=== PATIENT | male | born 1960 | race Caucasian/White ===

== ENCOUNTER → 2018-05-10 | Outpatient (REF) | payer BC, OTHER | LOC: M SMT 17:05 | DX: R97.20 Elevated prostate specific antigen [PSA] (principal) | CPT/HCPCS: 87086 ==

== ENCOUNTER → 2018-06-11 | Outpatient (CLI) | payer OTHER | LOC: M SMT PRO 10:38 | DX: C61 Malignant neoplasm of prostate (principal) | CPT/HCPCS: 88342 ==

== ENCOUNTER 2018-08-13 09:54 | Inpatient (IN) | payer OTHER ==
[~2018-08-13] VITALS: Ht 175.3 cm; Wt 77.1 kg
[~2018-08-13 09:54] MED LIST: COLLCAP2 PO; FISH1000 PO; HEPARIN SOD (PORCINE) 5000 UNITS/ML VIAL SQ ONE; LIDOCAINE 1% MDV 20ML VIAL SQ PRN; LR 1,000 ML IV ONE; MULTCAP PO; TURM500T PO
[2018-08-13] MEDS ORDERED: LIDOCAINE 1% SDV INJ 30 ML VIAL As Ordered ONE (13:29)
[2018-08-13] MEDS ORDERED: BUPIVACAINE HCL 0.25% 30 ML VIAL As Ordered ONE (13:29)
[2018-08-13] MEDS ORDERED: MORPHINE 4 MG/ML 1ML VIAL/SYRINGE (J2270) IV PRN (14:00)
[2018-08-13] MEDS ORDERED: ONDANSETRON 4MG/2ML VIAL (J2405) IV PRN ×2 (14:00→19:45)
[2018-08-13] MEDS ORDERED: ACETAMINOPHEN TAB 650MG DOSE (2X325MG) PO PRN (14:00)
[2018-08-13] MEDS ORDERED: HEPARIN SOD (PORCINE) 5000 UNITS/ML VIAL As Ordered ONE (14:06)
[2018-08-13] MEDS ORDERED: PROPOFOL 200 MG/20 ML VIAL As Ordered ONE (14:06)
[2018-08-13] MEDS ORDERED: MIDAZOLAM INJ 2 MG/2 ML VIAL (J2250) As Ordered ONE (14:06)
[2018-08-13] MEDS ORDERED: dexameTHASONE 4 MG/ML 1ML VIAL (J1100) As Ordered ONE (14:06)
[2018-08-13] MEDS ORDERED: ROCURONIUM BROMIDE 50 MG/5 ML VIAL As Ordered ONE ×4 (14:06→16:45)
[2018-08-13] MEDS ORDERED: LIDOCAINE 2% INJ 100 MG/5 ML SDV (FOR ANES.) As Ordered ONE (14:06)
[2018-08-13] MEDS ORDERED: fentaNYL 250 MCG/5 ML INJECTION (J3010) As Ordered ONE (14:06)
[2018-08-13] MEDS ORDERED: LABETALOL HCL 100 MG/20 ML VIAL As Ordered ONE (14:48)
[2018-08-13] MEDS ORDERED: HYDROmorphone HCL 2 MG/ML 1ML VIAL (J1170) As Ordered ONE (15:32)
[2018-08-13] MEDS ORDERED: METHYLENE BLUE 0.5% (5MG/ML) 10 ML AMP (PROVAYBLUE)(Q9968 PER 1MG) As Ordered ONE (17:48)
[2018-08-13] MEDS ORDERED: FUROSEMIDE 100 MG/10 ML VIAL (J1940) As Ordered ONE (17:49)
[2018-08-13] MEDS ORDERED: ONDANSETRON 4MG/2ML VIAL (J2405) As Ordered ONE (18:30)
[2018-08-13] MEDS ORDERED: SUGAMMADEX SODIUM 500 MG/5 ML VIAL (BRIDION) As Ordered ONE (18:33)
[2018-08-13 19:34] LABS: HEMATOCRIT 45.5 % (42.0-52.0); HEMOGLOBIN 14.7 g/dl (13.5-17.5); MEAN CORPUSCULAR HEMOGLOBIN 30.1 pg (27.0-33.0); MEAN CORPUSCULAR HGB CONC 32.3 g/dl (32.0-36.5); PLATELET COUNT, AUTOMATED 253 10^3/uL (150-450); RED BLOOD COUNT 4.89 10^6/uL (4.30-6.10); WHITE BLOOD COUNT 20.4 10^3/uL (4.0-10.0)
[2018-08-13] MEDS ORDERED: MEPERIDINE INJ 25 MG/ML VIAL (J2175) As Ordered ONE (19:34)
--- NOTE | 2018-08-13 19:34 | ROOPDOC ---
[facility] Report Of Operation Report of Operation DATE OF PROCEDURE: 08/13/18 PREPROCEDURE DIAGNOSIS: Prostate cancer. POSTPROCEDURE DIAGNOSIS: Prostate cancer. PROCEDURE: Robotic-assisted laparoscopic radical prostatectomy with bilateral pelvic lymph node dissection. SURGEON: Goldie Figueroa MD HEALTHCARE TECHNICIAN: Cathie Crook NP ANESTHESIA: General. OPERATIVE INDICATIONS: This is a 58 year old male with intermediate risk clinical T1c [place] 3+4 prostate cancer. After a discussion of the options for treatment, he elected to undergo the above procedure. DESCRIPTION OF PROCEDURE: The patient was brought to the operating room and general anesthesia was induced. Prophylactic antibiotics were infused. He was then placed in the dorsal lithotomy position and prepped and draped in the usual sterile fashion. At this point, a Her catheter was inserted into the bladder and the balloon was filled with 10 mL of sterile water. We then made a midline incision just above the umbilicus for a 12 mm port. A Veress needle was utilized to achieve pneumoperitoneum. Next, a 12 mm port was inserted into the incision and subsequently a camera was inserted. There were no injuries from the Veress needle or initial trocar placement. At this point, we placed the remaining ports, including a 12 mm speech language pathology assistant port and then three robotic ports in the usual W configuration. Once all the ports were placed, the robot was docked. Lysis of adhesions between the sigmoid colon and abdominal wall was then performed. The bladder was then released from the anterior abdominal wall using electrocautery. Once the bladder was dropped, the fat overlying the prostate was cleared using electrocautery. The superficial dorsal vein was controlled with electrocautery. The endopelvic fascia was opened on both sides and the dorsal venous complex was cleared. Next, a #0 Vicryl avowns-hb-jovhc stitch was placed around the dorsal venous complex. Once that was done, the bladder was opened and dissected away from the prostate. At this point, the prostate was lifted up. The vasa deferentia were identified in the midline. They were ligated with Weck clips and then transected. The seminal vesicles were also dissected off bilaterally. The rectum was safely mobilized away from the prostate. Based on preoperative discussion a bilateral nerve-sparing procedure was done. Therefore prior to taking the pedicles, bilateral neurovascular bundles were dissected off the prostate using cold scissors. At this point bilateral prostatic pedicles were taken using the Harmonic scalpel. The pedicles were carried towards the apex. After taking care of the pedicles and mobilizing the rectum off the prostate below, the prostate was only connected by the urethra. At this point, the dorsal venous complex was transected with electrocautery. The urethra was then opened and the catheter was withdrawn and the posterior urethra was transected, thus freeing the prostate. At this point, we checked for hemostasis and it did appear very good. Next, we performed bilateral pelvic lymph node dissection. This was done in a standard fashion. The limits of dissection were the iliac vein proximally, the obturator nerve distally, the pelvic sidewall laterally, and the bladder medially. All lymphatic tissue within these limits was removed. I performed the same procedure on both the right and left sides. Hemostasis was then obtained with a combination of bipolar electrocautery and Weck clips. The lymphatic packets were then placed in separate Endo Catch bags for future retrieval. Once hemostasis was confirmed, I then moved on to perform the vesicourethral anastomosis. Of note, prior to doing this a cystotomy was noticed on the posterior aspect of the bladder. This was done inadvertently while dissecting bladder off the prostate. The cystotomy was closed using a running 2-0 vicryl suture. After doing this methylene blue was administered to ensure that the ureteral orifices were not ligated while repairing the cystotomy. Subsequently blue urine was seen coming out of both sides of the bladder, indicating that the ureteral orifices were patent. After this, the vesicourethral anastomosis was performed in running fashion using a Quill stitch. Once this was done, the final #20-[place]izen [place] Her catheter was placed. The balloon was filled with 15 mL of sterile water. Upon completion of the vesicourethral anastomosis, it was tested by filling the bladder with sterile water. The anastomosis appeared to be watertight. At this point, the prostate and seminal vesicles were placed in an Endo Catch bag for future retrieval. The robot was then undocked. A [place] fascial closure device was utilized to place a #0 Vicryl suture between the fascia of the 12 mm speech language pathology assistant port. At this point, a Ludin- Evans drain was brought in through the left robotic port skin site and the drain was positioned anterior to the bladder. The drain was secured to the skin with #2-0 Ethilon suture. Next, all the remaining ports were removed and there did not appear to be any bleeding from any of the port sites. The prostate, as well as the lymphatic packets were then extracted from the 12 mm camera port site after the skin was extended. The fascia in this incision was then closed with a running #0 Vicryl stitch. The previously placed #0 Vicryl free ties through the speech language pathology assistant port were then tied down and all incisions were irrigated. Last, all of the incisions were closed with running subcuticular #4-0 Monocryl sutures. Local anesthesia was applied. Dermabond was then applied to the incisions. This marked the conclusion of the procedure. The patient was then taken out of the dorsal lithotomy position, awakened from anesthesia and transported to the recovery room in stable condition. ESTIMATED BLOOD LOSS: 100 mL. COMPLICATIONS: None. SPECIMENS: Prostate and seminal vesicles, right pelvic lymph nodes, left pelvic lymph nodes. PLAN: The patient will be admitted to the hospital postoperatively, and he will likely be discharged home within the next 1-2 days. GOLDIE FIGUEROA MD Aug 13, 2018 19:34
[2018-08-13] MEDS: MEPERIDINE INJ 25 MG/ML VIAL (J2175) IV PRN ×2 (19:35→19:41)
[2018-08-13] MEDS ORDERED: MORPHINE 10 MG/ML 1ML VIAL (J2270) IV PRN (19:45)
[2018-08-13] MEDS ORDERED: LR 1,000 ML IV SCH (19:45)
[2018-08-13] MEDS ORDERED: fentaNYL 100 MCG/2 ML INJECTION (J3010) IV PRN (19:45)
[2018-08-13] MEDS ORDERED: PERCOCET 5MG/325MG TAB PO PRN (19:45)
[2018-08-13] MEDS ORDERED: METOCLOPRAMIDE INJ 10MG/2ML VIAL (J2765) IV PRN (19:45)
[2018-08-13 19:59] LABS: CALCIUM LEVEL 8.6 MG/DL (8.5-10.1); CREATININE FOR GFR 1.45 MG/DL (0.70-1.30); GLOMERULAR FILTRATION RATE 53.4 (>56); POTASSIUM SERUM 4.5 MEQ/L (3.5-5.1)
[2018-08-13 20:20] VITALS: BP 133/76
[2018-08-13] MEDS: NS 1,000 ML IV SCH (20:39)
[2018-08-13 20:50] VITALS: BP 135/70
[2018-08-13 21:20] VITALS: BP 135/74
[2018-08-13] MEDS: HEPARIN SOD (PORCINE) 5000 UNITS/ML VIAL SC SCH (22:00)
[2018-08-13] MEDS: DOCUSATE SODIUM 100 MG CAP PO SCH (22:14)
[2018-08-13] MEDS: ceFAZolin SOD 1 GM in D5W MINI-BAG PLUS 50 ML IV SCH (22:20)
[2018-08-13 23:20] VITALS: BP 135/66
[2018-08-14 02:00] VITALS: BP 133/76
[2018-08-14] MEDS: PERCOCET 5MG/325MG TAB PO PRN ×4 (04:27→20:07)
[2018-08-14] MEDS: NS 1,000 ML IV SCH ×2 (05:06→05:50)
[2018-08-14 06:00] VITALS: BP 118/62
[2018-08-14 06:19] LABS: MEAN CORPUSCULAR HEMOGLOBIN 29.6 pg (27.0-33.0); MEAN CORPUSCULAR HGB CONC 32.4 g/dl (32.0-36.5); MEAN CORPUSCULAR VOLUME 91.6 fl (80.0-96.0); PLATELET COUNT, AUTOMATED 212 10^3/uL (150-450); RED BLOOD COUNT 4.15 10^6/uL (4.30-6.10); WHITE BLOOD COUNT 12.8 10^3/uL (4.0-10.0)
[2018-08-14 06:26] LABS: HEMOGLOBIN 12.3 g/dl (13.5-17.5)
[2018-08-14] MEDS: HEPARIN SOD (PORCINE) 5000 UNITS/ML VIAL SC SCH ×3 (06:28→21:56)
[2018-08-14] MEDS: ceFAZolin SOD 1 GM in D5W MINI-BAG PLUS 50 ML IV SCH (06:28)
[2018-08-14 06:36] LABS: BLOOD UREA NITROGEN 15 MG/DL (7-18); CALCIUM LEVEL 8.3 MG/DL (8.5-10.1); CARBON DIOXIDE LEVEL 27 MEQ/L (21-32); CHLORIDE LEVEL 102 MEQ/L (98-107); CREATININE FOR GFR 1.02 MG/DL (0.70-1.30); GLOMERULAR FILTRATION RATE > 60.0 (>56); GLUCOSE, FASTING 104 MG/DL (70-100); POTASSIUM SERUM 4.2 MEQ/L (3.5-5.1); SODIUM LEVEL 135 MEQ/L (136-145)
[2018-08-14] MEDS: DOCUSATE SODIUM 100 MG CAP PO SCH ×2 (08:16→20:06)
--- NOTE | 2018-08-14 09:35 | IPNPDOC ---
Assessment/Plan Date Seen The patient was seen on 08/14/18. Patient Summary This is a 58 y/o M POD1 s/p RALP w/ BPLND. He is doing well. Hb is stable. UOP has been very good. Drain output has been minimal. Plan/VTE VTE Prophylaxis Ordered?: Yes VTE Exclusion Mechanical Proph: N/A:VTE Prophy Ordered VTE Exclusion Pharmacological: N/A:VTE Prophy Ordered Plan/Urinary Catheter Urinary Catheter: Other Catheter: (catheter will need to stay in for 10-14 days for healing of the vesicourethral anastomosis) Plan - d/c IVF - percocet prn pain - strict I/Os - SCDs when in bed - SQH - incentive spirometry - ambulate - advance diet as tolerated - likely discharge home later today Subjective Review oF Systems Chief Complaint The patient is a 58-year-old male admitted with a reason for visit of Prostate Cancer. Events since Last Encounter No acute events o/n. Good pain control. No n/v. Has not ambulated yet. No f/c/ns. Objective Physical Examination General Exam: Alert, Cooperative, No Acute Distress ABDOMEN EXAM: Other (soft, mildly tender; incisions clean/dry/intact; MARGARITA drain w/ serosanguinous output) Neuro Exam: Normal Speech Psych Exam: Mental status NL, Mood NL Other physical findings catheter in place draining dark pink urine Vital Signs/I&O Vital Signs Date Time Temp Pulse Resp B/P (MAP) Pulse Ox O2 Delivery O2 Flow Rate FiO2 08/14/18 08:32 18 08/14/18 06:00 98.5 66 118/62 (80) 98 Nasal Cannula 2.0 I&O- Last 24 Hours up to 6 AM 08/14/18 05:59 Intake Total 4240 ml Output Total 1455 ml Balance 2785 ml Laboratory Data Labs 24H Laboratory Tests 2 08/13/18 19:28: Nucleated Red Blood Cells % (auto) 0.0, Anion Gap 7L, Glomerular Filtration Rate 53.4L, Blood Urea Nitrogen 18, Creatinine 1.45H, Sodium Level 140, Potassium Lev el 4.5, Chloride Level 105, Carbon Dioxide Level 28, Calcium Level 8.6 08/14/18 05:42: Nucleated Red Blood Cells % (auto) 0.0, Anion Gap 6L, Glomerular Filtration Rate > 60.0, Blood Urea Nitrogen 15, Creatinine 1.02, Sodium Level 135L, Potassium Level 4.2, Chloride Level 102, Carbon Dioxide Level 27, Calcium Level 8.3L CBC/BMP Laboratory Tests 08/13/18 19:28 Red Blood Count 4.89, Mean Corpuscular Volume 93.0, Mean Corpuscular Hemoglobin 30.1, Mean Corpuscular Hemoglobin Concent 32.3, Red Cell Distribution Width 12.7, Calcium Level 8.6 08/14/18 05:42 Red Blood Count 4.15 L, Mean Corpuscular Volume 91.6, Mean Corpuscular Hemoglo bin 29.6, Mean Corpuscular Hemoglobin Concent 32.4, Red Cell Distribution Width 12.5, Calcium Level 8.3 L GOLDIE FIGUEROA MD Aug 14, 2018 09:35
[2018-08-14 10:00] VITALS: BP 101/57
[2018-08-14 14:00] VITALS: BP 140/83
[2018-08-14 18:00] VITALS: BP 140/68
[2018-08-14 22:00] VITALS: BP 133/72
[2018-08-15] MEDS: PERCOCET 5MG/325MG TAB PO PRN ×2 (01:16→16:26)
[2018-08-15 02:00] VITALS: BP 153/77
[2018-08-15] MEDS: HEPARIN SOD (PORCINE) 5000 UNITS/ML VIAL SC SCH ×2 (05:45→14:05)
[2018-08-15 06:00] VITALS: BP 125/57
[2018-08-15] MEDS ORDERED: CIPROFLOXACIN 500 MG TAB PO SCH (06:00)
[2018-08-15 06:25] LABS: HEMATOCRIT 39.8 % (42.0-52.0); HEMOGLOBIN 13.3 g/dl (13.5-17.5); MEAN CORPUSCULAR HEMOGLOBIN 30.4 pg (27.0-33.0); MEAN CORPUSCULAR HGB CONC 33.4 g/dl (32.0-36.5); MEAN CORPUSCULAR VOLUME 90.9 fl (80.0-96.0); PLATELET COUNT, AUTOMATED 187 10^3/uL (150-450); RED BLOOD COUNT 4.38 10^6/uL (4.30-6.10); WHITE BLOOD COUNT 17.8 10^3/uL (4.0-10.0)
[2018-08-15 06:47] LABS: BLOOD UREA NITROGEN 14 MG/DL (7-18); CALCIUM LEVEL 8.7 MG/DL (8.5-10.1); CARBON DIOXIDE LEVEL 26 MEQ/L (21-32); CHLORIDE LEVEL 97 MEQ/L (98-107); CREATININE FOR GFR 1.08 MG/DL (0.70-1.30); GLOMERULAR FILTRATION RATE > 60.0 (>56); GLUCOSE, FASTING 127 MG/DL (70-100); POTASSIUM SERUM 4.4 MEQ/L (3.5-5.1); SODIUM LEVEL 130 MEQ/L (136-145)
[2018-08-15] MEDS: DOCUSATE SODIUM 100 MG CAP PO SCH (08:54)
[2018-08-15 09:34] LABS: CREATININE BF 3.1 MG/DL (NOT ESTABLISHED); SOURCE, BODY FLUID CREATININE PERITONEAL
[2018-08-15 10:00] VITALS: BP 129/74
--- NOTE | 2018-08-15 10:03 | IPNPDOC ---
Assessment/Plan Date Seen The patient was seen on 08/15/18. Patient Summary This is a 58 y/o M POD 2 s/p RALP w/ BPLND. He went into clot retention early this morning and then again when I examined him. I irrigated his bladder w/ NS and got a few clots out w/ the immediate drainage of a large amount of urine. During the time that he was in retention, his MARGARITA output picked up. His Cr is stable at 1, but his WBC went up to 17, likely secondary to him being in retention. A MARGARITA Cr was obtained and was 3, indicating a small urine leak due to him being in retention. Plan/VTE VTE Prophylaxis Ordered?: Yes VTE Exclusion Mechanical Proph: N/A:VTE Prophy Ordered VTE Exclusion Pharmacological: N/A:VTE Prophy Ordered Plan/Urinary Catheter Urinary Catheter: Other Catheter: (catheter will need to stay in for 10-14 days for healing of the vesicourethral anastomosis) Plan - cipro prophylaxis - percocet prn pain - strict I/Os - SCDs when in bed - SQH - incentive spirometry - regular diet - will monitor for the rest of the day - if no more retention and patient feels well, we will discharge him this afternoon w/ the catheter and MARGARITA drain Subjective Review oF Systems Chief Complaint The patient is a 58-year-old male admitted with a reason for visit of Prostate Cancer. Events since Last Encounter Patient went into clot retention early this morning. His bladder was irrigated w/ normal saline w/ the return of several clots. Urine drained well from the catheter for a few hours and then the patient noted the onset of severe supra pubic pain w/ minimal urine output at the time that I saw him. He denies fevers or chills. Denies n/v. No flatus yet. Tolerating regular diet. Ambulating well. Objective Physical Examination General Exam: Alert, Cooperative, No Acute Distress ABDOMEN EXAM: Other (soft, suprapubic fullness; incisions clean/dry/intact; MARGARITA drain w/ serosanguinous output) Neuro Exam: Normal Speech Psych Exam: Mental status NL, Mood NL Other physical findings catheter w/ nothing draining in the tubing at the time of my exam Vital Signs/I&O Vital Signs Date Time Temp Pulse Resp B/P (MAP) Pulse Ox O2 Delivery O2 Flow Rate FiO2 08/15/18 06:00 99.0 69 17 125/57 (79) 95 Room Air 08/14/18 06:00 2.0 I&O- Last 24 Hours up to 6 AM 08/15/18 05:59 Intake Total 2660 ml Output Total 3645 ml Balance -985 ml Laboratory Data Labs 24H Laboratory Tests 2 08/15/18 06:05: Nucleated Red Blood Cells % (auto) 0.0, Anion Gap 7L, Glomerular Filtration Rate > 60.0, Blood Urea Nitrogen 14, Creatinine 1.08, Sodium Level 130L, Potassium Le niharika 4.4, Chloride Level 97L, Carbon Dioxide Level 26, Calcium Level 8.7 08/15/18 08:55: Body Fluid Creatinine Source PERITONEAL, Body Fluid Creatinine 3.1 CBC/BMP Laboratory Tests 08/15/18 06:05 Red Blood Count 4.38, Mean Corpuscular Volume 90.9, Mean Corpuscular Hemoglobin 30.4, Mean Corpuscular Hemoglobin Concent 33.4, Red Cell Distribution Width 12.2, Calcium Level 8.7 GOLDIE FIGUEROA MD Aug 15, 2018 10:03
[2018-08-15 14:00] VITALS: BP 114/69
[2018-08-15] MEDS ORDERED: PERCOCET PO (15:43)
[2018-08-15] MEDS ORDERED: COLA100C5 PO (15:43)
[2018-08-15] MEDS ORDERED: CIPR500T3 PO (15:43)
[2018-08-15] MEDS ORDERED: ACE65ERTAB PO (15:43)
== END 2018-08-15 16:55 | disposition home or self-care (01) | DRG 708 ==
LOC: M OR 09:54 → M MSPAV 20:18
PROVIDERS: ADMIT Urology; ATTEND Urology
PROC: 07BC4ZX Excision of Pelvis Lymphatic, Percutaneous Endoscopic Approach, Diagnostic (ICD-10-PCS; 2018-08-13)
PROC: 8E0W4CZ Robotic Assisted Procedure of Trunk Region, Percutaneous Endoscopic Approach (ICD-10-PCS; 2018-08-13)
PROC: 0VT04ZZ Resection of Prostate, Percutaneous Endoscopic Approach (ICD-10-PCS; principal; 2018-08-13 12:00)
DX: C61 Malignant neoplasm of prostate (principal); R33.9 Retention of urine, unspecified; Z79.899 Other long term (current) drug therapy; Z90.49 Acquired absence of other specified parts of digestive tract; F17.210 Nicotine dependence, cigarettes, uncomplicated; F17.220 Nicotine dependence, chewing tobacco, uncomplicated

== ENCOUNTER → 2018-08-22 | Outpatient (CLI) | payer OTHER ==
[~2018-08-22] MED LIST changes: +ACE65ERTAB PO; +CIPR500T3 PO; +COLA100C5 PO; +CYSTO-CONRAY II 17.2% 250ML VIAL (Q9958) As Ordered ONE; -HEPARIN SOD (PORCINE) 5000 UNITS/ML VIAL SQ ONE; -LIDOCAINE 1% MDV 20ML VIAL SQ PRN; -LR 1,000 ML IV ONE; +PERCOCET PO
--- NOTE | 2018-08-22 17:30 | REP ---
CYSTOGRAM The procedure was performed under the direct supervision of Dr. Ramachandran. The images were reviewed with Dr. Ramachandran. The patient is status post prostatectomy 9 days ago. The patient arrived in the department with an indwelling Her catheter. Cysto-Conray II was instilled into the bladder in a retrograde flow. The bladder is normal in position and contour. There is no evidence of extravasation. There is no evidence of ureteral reflux. There is no postvoid residual. Impression: There is no evidence of extravasation or ureteral reflux. 0.2 minutes of fluoroscopy time was utilized for this procedure. Reviewed by GUILLAUME Herrera 08/22/2018 05:08 P Electronically Signed by Brent Ramachandran MD 08/22/2018 05:21 P
== END ==
LOC: M RADPRO 12:58
PROVIDERS: ATTEND Urology
DX: R32 Unspecified urinary incontinence (principal); Z96.0 Presence of urogenital implants
CPT/HCPCS: 51600; 74430; Q9958

== ENCOUNTER → 2018-09-19 | Outpatient (CLI) | payer OTHER ==
[~2018-09-19] MED LIST changes: -CYSTO-CONRAY II 17.2% 250ML VIAL (Q9958) As Ordered ONE
== END ==
LOC: M SMT 10:28
PROVIDERS: ATTEND Urology
DX: C61 Malignant neoplasm of prostate (principal)

== ENCOUNTER → 2018-12-20 | Outpatient (CLI) | payer OTHER | LOC: M SMT 14:04 | PROVIDERS: ATTEND Urology | DX: C61 Malignant neoplasm of prostate (principal) ==

== ENCOUNTER → 2019-03-25 | Outpatient (CLI) | payer OTHER | LOC: M SMT 15:02 | PROVIDERS: ATTEND Urology | DX: C61 Malignant neoplasm of prostate (principal) ==

== ENCOUNTER → 2019-06-25 | Outpatient (CLI) | payer OTHER | LOC: M PLALAB 11:34 | PROVIDERS: ATTEND Urology | DX: C61 Malignant neoplasm of prostate (principal) ==

== ENCOUNTER → 2024-04-29 | Outpatient (REF) | payer OTHER | LOC: M LAB REF 18:11 | PROVIDERS: ATTEND Surgery | DX: C43.59 Malignant melanoma of other part of trunk (principal) ==

== ENCOUNTER → 2024-06-05 | Outpatient (REF) | payer OTHER | LOC: M LAB REF 15:35 | PROVIDERS: ATTEND Surgery | DX: C43.59 Malignant melanoma of other part of trunk (principal) ==